=== PATIENT | male | born 1955 | race Caucasian/White ===

== ENCOUNTER 2022-06-18 13:23 | Observation (INO) | payer OTHER ==
[~2022-06-18] VITALS: Ht 180.3 cm; Wt 124.3 kg
[~2022-06-18 13:23] MED LIST: ALEN70 PO; BELBUCA900 MCG BC; BUPR75 PO; CHLO25B PO; CLON1 PO; DULO60 PO; GABA400 PO; LISI5 PO; METF500C PO; MODA200; MODA200 PO; MORP60ER PO; NAPR250 PO; NUCYNTA50 MG PO; PREG150 PO; ROPI1 PO; Robaxin750 MG PO; TESTERONE
[2022-06-18 13:54] LABS: BASOPHILS ABSOLUTE AUTO 0.05 K/mm3 (0.00-0.23); BASOPHILS PERCENT AUTO 1 % (0-2); EOSINOPHILS PERCENT AUTO 2 % (0-6); Hematocrit 34.1 % (37.0-53.0); IMMATURE GRAN ABSOLUTE AUTO 0.03 K/mm3 (0.00-0.10); IMMATURE GRAN PERCENT AUTO 0 % (0-1); LYMPHOCYTES ABSOLUTE AUTO 2.45 K/mm3 (0.84-5.20); LYMPHOCYTES PERCENT AUTO 23 % (21-46); MONOCYTES ABSOLUTE AUTO 0.92 K/mm3 (0.16-1.47); MONOCYTES PERCENT AUTO 9 % (4-13); Mean Corpuscular HGB 29.7 pg (26.0-34.0); Mean Corpuscular HGB Conc 35.2 g/dL (31.5-36.5); Mean Corpuscular Volume 84 fL (80-100); Mean Platelet Volume 10.6 fL (9.1-12.4); NEUTROPHILS ABSOLUTE AUTO 7.11 K/mm3 (1.96-9.15); NEUTROPHILS PERCENT AUTO 66 % (41-73); Platelet Count 222 K/mm3 (150-400); RDW Coefficient Variation 13.1 % (11.7-14.2); RDW Standard Deviation 40.1 fL (35.1-46.3); Red Blood Cell Count 4.04 M/mm3 (4.30-5.90); White Blood Cell Count 10.76 K/mm3 (4.00-11.30)
[2022-06-18 14:24] LABS: Albumin, Blood 3.9 g/dL (3.4-5.0); Albumin/Globulin Ratio 1.3 (0.8-1.8); Bilirubin, Total 0.6 mg/dL (0.1-1.0); Bun/Creatinine Ratio 26.5 (12.0-20.0); Calcium, Blood 9.5 mg/dL (8.5-10.1); Creatinine, Blood 0.91 mg/dL (0.60-1.20); Total Protein, Blood 6.9 g/dL (6.4-8.2)
[2022-06-18] MEDS ORDERED: ASCO500 PO (20:07)
[2022-06-18] MEDS ORDERED: ALBU90OI INH (20:08)
[2022-06-18] MEDS ORDERED: FERROUS GLUCON324 M7 PO (20:09)
[2022-06-18] MEDS ORDERED: BUPR150ER PO (20:10)
[2022-06-18] MEDS ORDERED: DICL75ER PO (20:11)
[2022-06-18] MEDS ORDERED: FLUT.05NI (20:12)
[2022-06-18] MEDS ORDERED: MELA3 PO (20:13)
[2022-06-18] MEDS ORDERED: MELO7.5 PO (20:15)
[2022-06-18] MEDS ORDERED: POTCHL20ER PO (20:17)
[2022-06-18] MEDS ORDERED: TAMS.4ER PO (20:20)
[2022-06-18] MEDS ORDERED: TRAZ150T57 PO (20:21)
[2022-06-18] MEDS ORDERED: FURO40 PO (20:27)
[2022-06-18] MEDS ORDERED: FURO20 PO ×2 (20:27)
[2022-06-18] MEDS ORDERED: HYDHCL25 PO (20:29)
[2022-06-18] MEDS ORDERED: Ativan1 MG PO (20:32)
[2022-06-18 20:50] VITALS: BP 130/70
--- NOTE | 2022-06-18 21:00 | NUR ---
ASSUMED CARE OF PT AT 2100. PT A/O X4. USES CALL LIGHT APPROPRIATELY C/O SOB WITH CP 04/13. PREVIOUSE CP 10/11. PT PUT ON OXYGEN THERAPY 2 LPM NC FOR COMFORT. LUNG SOUNDS CLEAR BILATERALLY THROUGHOUT WITH DIMINISHED BASES. SPO2 >92% ON RA WITHOUT COMFORT OXYGENATION. CARDIAC-MULT PVC'S WITH SR OTHERWISE. HR 70'S. CP CONTINUES BUT AT MINIMAL PAIN LEVEL. MEDS- PT REPORTS TAKING BELBUCA EVERY 12 HOURS FOR SEVERE CHRONIC BACK PAIN. PT BROUGHT MEDICATION IN WITH HIM. UNABLE TO SEND TO PHARMACY D/T NOT HAVING PRESCRIPTION BOTTLE. PHARMACY DOES NOT CARRY THIS MEDICATION IN THE HOSPITAL. PT ALLOWED TO TAKE THE MEDICATION AND EDUCATED THAT THE NURSE NEEDS TO BE IN ROOM WITH PATIENT WHEN TAKING MEDICATION. IF PT BRINGS MORE MEDS IN THEY WILL NEED TO BE LOCKED UP IN DRAWER OUTSIDE OF THE ROOM. ALL OTHER MEDCIATIONS HAVE BEEN RECONCILED. PT IS ABLE TO GET UP TO USE THE RESTROOM ON HIS OWN. PT EDUCATED THAT HE NEEDS TO CALL BEFORE GETTING UP FOR STAND BY ASSIST PERSONEL. PT REPORTS THAT HE SLEEPS IN A RECLINER CHAIR AT HOME AND WILL HAVE A HARD TIME SLEEPING WELL IN BEDS HERE. 18G IN RIGHT AC FLUSHES AND HAS BLOOD RETURN. SEE FULL ASSESSMENT FOR FURTHER INFORMATION.
[2022-06-19] VITALS (7 sets, daily range): BP systolic 110–132; BP diastolic 62–80
--- NOTE | 2022-06-19 05:48 | NUR ---
END OF SHIFT SUMMARY PT VERY ANXIOUS AND RESTLESS MOST OF THE NIGHT. C/O SOB AND CP MINIMAL TO WHEN PT CAME INTO ER. /10 SORENESS REPORTED. PT HAS CHRONIC SEVERE BACK PAIN THAT IS NOT CONTROLED AT HOME WITH CURRENT MEDICATIONS. RESP- 2 LPM NC FOR COMFORT FOR PATIENT. REPORTS THAT HE FEELS BETTER WITH IT ON. SPO2 >92% ON RA. CARDIAC- MULT PVC'S WITH SR. MEDICATION TAKEN FOR PAIN NOTED TO PROLONG QTC AND ALSO HAS SIDE EFFECTS OF CHEST PAIN, PRESSURE ETC. PT EDUCATED ON MEDICATION SIDE EFFECTS. GI,- INDEPENDENT AND CONTINENT OF BOWEL AND BLADDER. URINE IS LIGHT YELLOW. INTEG- NOTHING ACUTE TO REPORT. WILL CONTINUE TO MONITOR UNTIL REPORT IS GEN TO AM RN.
[2022-06-19 16:04] LABS: Hematocrit 37.3 % (37.0-53.0); Hemoglobin 12.9 g/dL (13.5-17.5); Mean Platelet Volume 10.7 fL (9.1-12.4); Platelet Count 233 K/mm3 (150-400)
[2022-06-19 16:23] LABS: Anti-Xa UFH, PHA Monitoring <0.10 IU/mL; International Normalized Ratio 0.98; Prothrombin Time Results 10.3 Sec (9.7-11.5)
--- NOTE | 2022-06-19 17:55 | NUR ---
SHIFT SUMMARY: PT HAD ECHO TODAY, HEPARIN GTT INFUSING PER EMAR. VITAL SIGNS STABLE T/O THE SHIFT. HR IN THE 90S' NORMAL SINUS WITH FREQUENT PVC'S. PT WAITING FOR SLEEP STUDY TO BE COMPLETE. PT AMBULATES IND IN ROOM NO C/O DIZZINESS OR LIGHTHEADNESS. FIRST PART OF LEXISCAN COMPLETE. NPO AT MIDNIGHT FOR SECOND HALF TOMORROW. CALL LIGHT IN REACH. WILL CONTINUE TO MONITOR AND GIVE REPORT TO ONCOMING NOC RN.
--- NOTE | 2022-06-19 18:56 | NUR ---
PT WITH BRIEF EPISODE OF CP PAIN THAT HE RATED A TIGHTNESS, HE DID BECOME DIAPHORETIC TO CHEST AND FOREHEAD, THERE WAS A REPEAT EKG WAS PERFORMED NO ACUTE EKG CAHNGES NOTED. PLACED CALL TO DR MÉNDEZ CALLED AND MESSAGE LEFT BUT SHE HAS NTO RETURNED CALL AT THIS TIME. PT RESOLVED WITHOUT INTERVENTION.
[2022-06-20 03:05] VITALS: BP 113/60
[2022-06-20 05:31] LABS: BASOPHILS ABSOLUTE AUTO 0.06 K/mm3 (0.00-0.23); BASOPHILS PERCENT AUTO 1 % (0-2); EOSINOPHILS ABSOLUTE AUTO 0.29 K/mm3 (0.00-0.68); EOSINOPHILS PERCENT AUTO 4 % (0-6); Hematocrit 33.1 % (37.0-53.0); Hemoglobin 11.6 g/dL (13.5-17.5); IMMATURE GRAN ABSOLUTE AUTO 0.03 K/mm3 (0.00-0.10); IMMATURE GRAN PERCENT AUTO 0 % (0-1); LYMPHOCYTES ABSOLUTE AUTO 2.23 K/mm3 (0.84-5.20); LYMPHOCYTES PERCENT AUTO 27 % (21-46); MONOCYTES ABSOLUTE AUTO 0.72 K/mm3 (0.16-1.47); MONOCYTES PERCENT AUTO 9 % (4-13); Mean Corpuscular HGB 30.4 pg (26.0-34.0); Mean Corpuscular Volume 87 fL (80-100); Mean Platelet Volume 10.3 fL (9.1-12.4); NEUTROPHILS ABSOLUTE AUTO 5.06 K/mm3 (1.96-9.15); NEUTROPHILS PERCENT AUTO 60 % (41-73); Platelet Count 180 K/mm3 (150-400); RDW Coefficient Variation 13.2 % (11.7-14.2); RDW Standard Deviation 41.6 fL (35.1-46.3); Red Blood Cell Count 3.81 M/mm3 (4.30-5.90); White Blood Cell Count 8.39 K/mm3 (4.00-11.30)
--- NOTE | 2022-06-20 05:33 | NUR ---
Patients CBG continues to rise despite changing gtt to D5 and at a lower rate. Spoke with Dr. Almanza and would like to stop gtt all together and recheck CBG in an hr.
--- NOTE | 2022-06-20 05:34 | NUR ---
Assumed care of pt at 1900. A/Ox4, cooperative with care and calls appropriately. C/o chronic low back pain, attempted nonpharm solutions without success. Medicated per emar with good relief. Maintains over 92% on RA, significant FLORES. LS clear on top and dim at bases.SR with BBB, PVC and prolonged QTC on tele. QTC came down during the night from 0.52 to 0.47. Denies any current CP/pressure, VSS. Trace edema in BLE. Skin is diaphoretic/clammy. Heparin gtt running per emar, patient had CT PE study this shift. Patient able to rest most of the night, no acute changes, will report to dayshift RN.
[2022-06-20 05:51] LABS: Albumin, Blood 3.4 g/dL (3.4-5.0); Anion Gap 0 mmol/L (6-16); Blood Urea Nitrogen 15 mg/dL (8-24); Bun/Creatinine Ratio 25.1 (12.0-20.0); CO2, Blood 27 mmol/L (21-32); Calcium, Blood 8.8 mg/dL (8.5-10.1); Chloride, Blood 108 mmol/L (98-108); Glomerular Filtration Rate 106 (60-); Glucose, Blood 108 mg/dL (70-99); Phosphorus, Blood 3.5 mg/dL (2.5-4.9); Potassium, Blood 3.9 mmol/L (3.5-5.5); Sodium, Blood 135 mmol/L (136-145)
[2022-06-20 07:11] VITALS: BP 134/75
--- NOTE | 2022-06-20 08:53 | NUR ---
INITIAL ASSESSMENT: Patient is awake lying in bed with HOB elevated. Pt is C/O 8/10 lower back pain from a previous injury, he is medicated with his am lyrica and tyelnol. He is alert and oriented. HRR, SR with a BBB and PVCs. Pt has been having some QTC prolongation, it is 516. He denies chest pain at this time, he is tachypnec with a RR of 24-pt states it could be due to his pain. LS Dim in the bases, Biox is 98% on RA, pt denies cough. BT+, he denies N/V and Diarrhea. PPP, trace edema noted. VSS. Patient denies other needs at this time, plan per [facility] is to finish stress test this AM starting at 0800. Call light in reach.
--- NOTE | 2022-06-20 09:03 | NUR ---
PT DEVON SARITHA WELL, GAVE CAFFIENE POST FOR HR INCREASE/SOB, RESTING 12L EKG'S X [address] AVILES PRIOR TO STARTING TEST WHO DETERMINED IT WAS OK TO PROCEED
[2022-06-20 11:20] VITALS: BP 135/72
--- NOTE | 2022-06-20 12:30 | NUR ---
Update: Patient is resting comfortably in bed. He has been having some chronic back pain that is well controlled with oral medications and IV Fentanyl. VSS. Patient is awaiting stress test results to find out what the plan will be for the shift. Dr. Quezada at the bedside, reiterated we are waiting for the stress test results and then we will come up with a plan, pt verbalizes understanding. Call light in reach.
[2022-06-20] MEDS ORDERED: PANT20 PO (15:24)
--- NOTE | 2022-06-20 16:30 | NUR ---
Discharge: Dr. Quezada came back to see the patient to let him know the stress test is normal. She would like to start him on a PPI to see if maybe this could be GI related pain. PT talks with MD in length about having a recent sleep study done through the [place] system and nothing has been done about it. He states every time he calls to inquire, the [place] states they don't have any information regarding this test. Patient is able to call the clinic that performed the test and have the results faxed to our department so we can get him set up with a C-Pap. nursing home manager Ania to set up C-Pap through [facility] [place]. Patient verbalized understanding of discharge instructions. Patient went home via WC with .
== END 2022-06-20 16:28 | disposition home or self-care (01) ==
LOC: ER 13:23 → PCU 13:24
PROVIDERS: Emergency Medicine; Internal Medicine; ADMIT Internal Medicine
DX: R07.9 Chest pain, unspecified (principal); I10 Essential (primary) hypertension; E11.9 Type 2 diabetes mellitus without complications; F41.8 Other specified anxiety disorders; G47.30 Sleep apnea, unspecified; M54.9 Dorsalgia, unspecified; G89.29 Other chronic pain; R10.9 Unspecified abdominal pain; Z79.899 Other long term (current) drug therapy; Z79.84 Long term (current) use of oral hypoglycemic drugs; Z79.83 Long term (current) use of bisphosphonates; Z87.891 Personal history of nicotine dependence
CPT/HCPCS: 36415; 71046; 71260; 74177; 78452; 80053; 80069; 83690; 83735; 84484; 85014; 85018; 85025; 85049; 85379; 85520; 85610; 85730; 93005; 93010; 93017; 94760; 99285-25; A9270; A9500; C1751; C8929; J0706; J1170; J1644; J1650; J2785; J3010; J7030; Q9957; Q9967

== ENCOUNTER 2022-10-11 11:18 | Emergency (ER) | payer OTHER ==
[~2022-10-11] VITALS: Ht 182.9 cm; Wt 122.5 kg
[~2022-10-11 11:18] MED LIST changes: +ALBU90OI INH; +ASCO500 PO; +Ativan1 MG PO; +BUPR150ER PO; +DICL75ER PO; +DULO30 PO; +FERROUS GLUCON324 M7 PO; +FLUT.05NI; +FURO20 PO; +FURO40 PO; +HYDHCL25 PO; +LORAZEPAM1 MG PO; +MELA3 PO; +MELO7.5 PO; +PANT20 PO; +POTCHL20ER PO; +TAMS.4ER PO; +TRAZ150T57 PO
[2022-10-11 11:45] LABS: BASOPHILS ABSOLUTE AUTO 0.06 K/mm3 (0.00-0.23); BASOPHILS PERCENT AUTO 1 % (0-2); EOSINOPHILS ABSOLUTE AUTO 0.23 K/mm3 (0.00-0.68); EOSINOPHILS PERCENT AUTO 2 % (0-6); Hematocrit 35.7 % (37.0-53.0); Hemoglobin 11.9 g/dL (13.5-17.5); IMMATURE GRAN ABSOLUTE AUTO 0.03 K/mm3 (0.00-0.10); IMMATURE GRAN PERCENT AUTO 0 % (0-1); LYMPHOCYTES ABSOLUTE AUTO 1.81 K/mm3 (0.84-5.20); LYMPHOCYTES PERCENT AUTO 19 % (21-46); MONOCYTES ABSOLUTE AUTO 0.66 K/mm3 (0.16-1.47); MONOCYTES PERCENT AUTO 7 % (4-13); Mean Corpuscular HGB 29.2 pg (26.0-34.0); Mean Corpuscular HGB Conc 33.3 g/dL (31.5-36.5); Mean Corpuscular Volume 88 fL (80-100); Mean Platelet Volume 10.3 fL (9.1-12.4); NEUTROPHILS ABSOLUTE AUTO 6.76 K/mm3 (1.96-9.15); NEUTROPHILS PERCENT AUTO 71 % (41-73); Platelet Count 243 K/mm3 (150-400); RDW Coefficient Variation 12.8 % (11.7-14.2); Red Blood Cell Count 4.08 M/mm3 (4.30-5.90); White Blood Cell Count 9.55 K/mm3 (4.00-11.30)
[2022-10-11 12:00] VITALS: BP 125/84
[2022-10-11 12:05] LABS: Albumin, Blood 3.7 g/dL (3.4-5.0); Albumin/Globulin Ratio 1.1 (0.8-1.8); Bilirubin, Total 0.3 mg/dL (0.1-1.0); Bun/Creatinine Ratio 25.9 (12.0-20.0); Calcium, Blood 9.1 mg/dL (8.5-10.1); Creatinine, Blood 0.58 mg/dL (0.60-1.20); Globulin, Blood 3.4 g/dL (2.2-4.0); Potassium, Blood 4.6 mmol/L (3.5-5.5); Total Protein, Blood 7.1 g/dL (6.4-8.2)
[2022-10-11] MEDS ORDERED: ONDA4ODT MM (12:37)
== END 2022-10-11 12:48 | disposition home or self-care (01) ==
LOC: ER 11:18
PROVIDERS: Student in an Organized Health Care Education/Training Program
DX: R42 Dizziness and giddiness (principal); R11.0 Nausea; T44.7X5A Adverse effect of beta-adrenoreceptor antagonists, initial encounter; Z79.899 Other long term (current) drug therapy; Z79.84 Long term (current) use of oral hypoglycemic drugs; I10 Essential (primary) hypertension; E11.9 Type 2 diabetes mellitus without complications; G47.30 Sleep apnea, unspecified; Z87.891 Personal history of nicotine dependence
CPT/HCPCS: 80053; 82947; 84484; 85025; 99284-25; A9270

== ENCOUNTER → 2023-03-18 | Outpatient (CLI) | payer OTHER ==
[~2023-03-18] MED LIST changes: +ONDA4ODT MM
== END ==
LOC: LAB SHORT 12:31 → LAB 12:31
PROVIDERS: Anesthesiology
DX: Z01.812 Encounter for preprocedural laboratory examination (principal); Z13.1 Encounter for screening for diabetes mellitus; G89.4 Chronic pain syndrome
CPT/HCPCS: 87641